=== PATIENT | male | born 1985 | race Caucasian/White ===

== ENCOUNTER → 2016-03-25 | Day surgery (SDC) | payer OTHER ==
[~2016-03-25] MED LIST: ACETAMINOPHEN325 MG PO; BISACODYL5 MG PO; CIPRO PO; COLESTID PO; ESCITALOPRAM OX10 MG PO; FLAGYL PO; FLAGYL250 M1 PO; HUMALOG KW100 UNIT/1 SUBQ; HUMALOG100 U/M1; HUMALOG100 U/M2; HUMALOG100 U/ML; HUMULIN 70/30 V10 ML SQ; HUMULIN 70100 UNIT/1 SQ; IRON325 MG PO; LANTUS SOL100 UNIT/1 SUBQ; LANTUS SOLOSTAR3 ML SUBQ; LANTUS100 U/ML SUBQ; LIPITOR PO; LISINOPRIL10 MG PO; LO-DOSE ASPIRIN81 M1 PO; LORTAB 5/500 TA1 TA1 PO; LORTAB 7.5-3251 EACH PO; NEURONTIN100 MG PO; PANTOPRAZOLE SO40 MG PO; PEN-VEE K PO; PERCOCET5/325 PO; PHENERGAN PO; PHENERGAN25 MG PO; VOLTAREN75 MG PO; ZYVOX600 MG PO
--- NOTE | ~2016-03-25 | OR ---
Unit #: [id number] #: [id number] Patient: KELLEN MEDRANO [id number] [address] [address] [id number] MR#: [id number] NAME: KELLEN MEDRANO. ROOM: Date of Procedure: 03/25/2016 Admission Date: 03/25/2016 Surgeon: Jaylen Nicole M.D. : 1985 Attending Physician: Jaylen Nicole M.D. OPERATIVE REPORT PROCEDURES PERFORMED Esophagogastroduodenoscopy with biopsy, colonoscopy with snare polypectomy, and colonoscopy with biopsies. INDICATIONS FOR PROCEDURE The patient with chronic diarrhea, history of peptic ulcer disease, chronic severe reflux symptoms, undergoing evaluation with upper endoscopy and colonoscopy. MEDICATIONS Monitored anesthesia. POSTOPERATIVE FINDINGS 1. 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 Biopsies taken. 2. Chronic gastritis, biopsies taken. 3. Normal duodenum and distal duodenum. Biopsies taken looking for celiac disease. 4. Colonoscopy completed to cecum and terminal ileum. Random biopsies were taken from otherwise normal looking mucosa. 5. Sigmoid colon shows a polyp about 5 mm that was snared and sent for histopathology. 6. Internal hemorrhoids. PLAN Symptomatic treatment for now along with starting PPIs. Reflux precautions explained. DESCRIPTION OF PROCEDURE The patient was explained of the procedure, risks, and benefits along with risks and benefits of anesthesia. He was brought to the endoscopy room. Propofol anesthesia was given. Bite block was placed. The scope was passed down the mouth into the esophagus, stomach, duodenum, and distal duodenum. Findings as described. Biopsies taken. Gently, I pulled it out of the patient's mouth. He tolerated it well. At this time, he was turned around and repositioned for colonoscopy. Rectal exam was done, which was normal. Colonoscope was lubricated, passed up the rectum, advanced under direct vision all the way to the cecum. Cecum was identified by ileocecal valve and appendiceal orifice. Terminal ileum was intubated shows normal mucosa. Colonic mucosa was normal throughout. Biopsies taken randomly. Polyp seen in sigmoid colon Unit #: [id number] #: [id number] Patient: KELLEN MEDRANO was removed using snare polypectomy and sent for histopathology. I retroflexed in the rectum, internal hemorrhoids noted. Gently, the scope was pulled out. He tolerated it well. Dictated by... Pinky Pope/akila TD: 03/26/2016 00:51 JOB #: [id number] CC: Ramin Rice Jr., AlPSulma OPERATIVE REPORT X Jaylen Nicole MD X PROCEDURE OPERATIVE NOTE
[2016-03-25 10:45] LABS: BASOPHIL# 0.1 X10e3 (0-0.3); BASOPHIL% 1.2 % (0-2.5); EOSINOPHIL# 0.4 X10e3 (0-0.7); EOSINOPHIL% 7.2 % (0.0-7.0); HEMATOCRIT 31.9 % (38.0-50.0); HEMOGLOBIN 10.4 gm/dL (13.0-16.0); LYMPHOCYTE# 1.7 X10e3 (1.0-3.5); LYMPHOCYTE% 28.2 % (17.0-45.0); MEAN CELL VOLUME 91.6 FL (83-96); MEAN CORPUSCULAR HEMOGLOBIN 29.8 PG (28-34); MEAN CORPUSCULAR HGB CONC 32.5 g/dL (30-36); MEAN PLATELET VOLUME 9.3 FL (6.5-11.5); MONOCYTE# 0.5 X10e3 (0-1.0); MONOCYTE% 7.8 % (3.0-12.0); NEUTROPHIL# 3.3 X10e3 (1.5-7.1); NEUTROPHIL% 55.6 % (40-75); PLATELET COUNT 217 X10e3 (140-420); RED BLOOD COUNT 3.49 X10e (3.90-5.60); RED CELL DISTRIBUTION WIDTH 13.6 % (11.0-15.5)
[2016-03-25 10:46] LABS: DIFF IND NO
[2016-03-25 12:16] LABS: ALBUMIN SERUM 3.4 g/dL (3.5-5.0); BILIRUBIN,TOTAL 0.5 mg/dL (0.2-2.0); CALCIUM SERUM 8.8 mg/dL (8.4-10.2); CREATININE SERUM 1.5 mg/dL (0.6-1.4); GLOM FILT RATE Estimated 59.2 mL/min (>60); POTASSIUM 4.3 mmol/L (3.5-5.1); PROTEIN TOTAL SERUM 5.8 g/dL (6.0-8.3)
[2016-03-30 13:42] LABS: GLIADIN IGA AB 7 Units (<20); GLIADIN IGG AB 6 Units (<20); RETICULIN IGA SCREEN W/REFLEX Negative (Negative); TISSUE TRANSGLUTAMINASE IGA AB 1 U/mL (<4)
== END | disposition home or self-care (01) ==
LOC: COPS 07:44
PROVIDERS: Internal Medicine
DX: K63.5 Polyp of colon (principal); K52.9 Noninfective gastroenteritis and colitis, unspecified; K29.80 Duodenitis without bleeding; K29.50 Unspecified chronic gastritis without bleeding; K20.9 Esophagitis, unspecified; K44.9 Diaphragmatic hernia without obstruction or gangrene; K64.8 Other hemorrhoids; K21.9 Gastro-esophageal reflux disease without esophagitis; I11.0 Hypertensive heart disease with heart failure; I50.9 Heart failure, unspecified; E11.9 Type 2 diabetes mellitus without complications; F17.210 Nicotine dependence, cigarettes, uncomplicated; Z79.899 Other long term (current) drug therapy
CPT/HCPCS: 80053; 82947; 83516; 85025; 86140; 86255; 88305; 88312; J2250

== ENCOUNTER 2016-07-08 22:30 | Inpatient (IN) | payer OTHER ==
--- NOTE | ~2016-07-08 | HP ---
Unit #: [id number] #: [id number] Patient: KELLEN MEDRANO [id number] [facility] [address] [facility]. [place], [place] [address] [id number] I MR#: [id number] NAME: KELLEN MEDRANO ROOM: 231 Age: 30 Sex: M Admission Date: 07/08/2016 : 1985 Attending Physician: Willard Leon M.D. Primary Care Physician: No Primary Care Physician HISTORY AND PHYSICAL CHIEF COMPLAINT Weakness. HISTORY OF PRESENT ILLNESS The patient is a 30-year-old male with type 1 diabetes who presents to [facility] secondary to some weakness. He states that he has had a sore on his foot for the past one month. It started out as a simple blister but has progressed to what is an open wound that is red and warm. He denies significant pain. No fevers, nausea or vomiting. As mentioned above, he states that he is feeling subjectively weak, increasingly over the past few days. PAST MEDICAL HISTORY Diabetes, inflammatory bowel disease and hypertension. PAST SURGICAL HISTORY None. SOCIAL HISTORY The patient smokes, denies alcohol or illicit drug use. FAMILY HISTORY Asthma. ALLERGIES No known drug allergies. HOME MEDICATIONS Aspirin 81 mg daily; Lipitor 10 mg daily; Colestid 1 g daily; Lexapro 10 mg daily; iron 325 mg p.o. daily; Neurontin 100 mg p.o. at bedtime; lisinopril 10 mg daily; Protonix 40 mg daily; Lantus 10 units subcu at bedtime; Humalog 5 units before meals. REVIEW OF SYSTEMS Ten point review of systems obtained and negative except per HPI. PHYSICAL EXAMINATION VITAL SIGNS: Temperature 98.6, pulse 98, blood pressure 129/78. GENERAL: 30-year-old male in no acute distress who appears her stated age. HEENT: Pupils equally round. Extraocular movements intact. Mucous membranes dry. NECK: Supple. No JVD. No lymphadenopathy. CARDIAC: Regular rate and rhythm. No murmurs, gallops or rubs. Unit #: [id number] #: [id number] Patient: KELLEN MEDRANO LUNGS: Clear to auscultation bilaterally. ABDOMEN: Nontender and nondistended. Positive bowel sounds. EXTREMITIES: No clubbing, cyanosis or edema. Warm and dry. PSYCH: Alert and oriented x3. NEUROLOGIC: Cranial nerves II-XII intact grossly. Patient moves all extremities equal and with purpose. SKIN: He has open, necrotic looking wound in his left great toe. There is erythema and swelling associated. MUSCULOSKELETAL: Swelling of his left great toe, otherwise no muscle joint pain. No muscle joint swelling. DIAGNOSTIC STUDIES LABORATORY STUDIES: Patient's creatinine is 1.7. Glucose 318. Potassium 3.3, bicarb 19. White cell count is 14.3, hemoglobin 9.6. IMAGING STUDIES: X-ray of the foot shows soft tissue swelling but no osteomyelitis. ASSESSMENT AND PLAN 1. Diabetic foot infection. Patient has been started on Zosyn and vancomycin in the emergency department and will continue these. X-ray shows no osteo; however, the patient will likely require MRI with contrast one his renal function improves. 2. I have ordered a CRP also to help with the diagnosis of osteomyelitis. 3. Diabetes. The patient is started on his home medications. 4. Acute kidney injury likely volume depletion from uncontrolled diabetes. Given the patient a 500 mL bolus and will continue with further fluid resuscitation. 5. Prophylaxis. Patient will be started on Lovenox. Dictated by Willard Leon M.D. RAIZA/tito TD: 07/09/2016 13:18 JOB #: [id number] HISTORY AND PHYSICAL Page 1 of 1 X Willard Leon MD HISTORY AND PHYSICAL
--- NOTE | ~2016-07-08 | CO ---
Unit #: [id number] #: [id number] Patient: KELLEN MEDRANO [id number] [address] [place], [place] [address] [id number] I MR#: [id number] NAME: KELLEN MEDRANO ROOM: 231 Age: 30 Sex: M Admission Date: 07/08/2016 : 1985 Attending Physician: Pilar Collins M.D. CONSULTATION REPORT REASON FOR CONSULTATION Management of type 1 diabetes mellitus. HISTORY OF PRESENT ILLNESS This is a 30-year-old male with history of type 1 diabetes mellitus since the age of 14 years, complicated with the peripheral neuropathy, who presented to the [facility] Emergency Room with increasing weakness, pain, swelling, and redness on the left big toe. The wound has started as a blister about a month ago, which has been getting worse over the next 3 to 4 weeks. No fever or chills. He was started on IV vancomycin. His blood glucose on admission was over 300, creatinine of 1.7. I have been asked to see the patient for management of his diabetes mellitus. Note, the patient does report to have a history of some hypoglycemia. PAST MEDICAL HISTORY Type 1 diabetes mellitus, inflammatory bowel disease, and hypertension. PAST SURGICAL HISTORY None. SOCIAL HISTORY Continues to smoke tobacco. No alcohol or illicit drugs. FAMILY HISTORY Noncontributory. ALLERGIES None known. HOME MEDICATIONS Lantus 20 units b.i.d., Humalog 5 to 10 units with meals, sliding scale, Lexapro 10 mg daily, Neurontin 100 mg at bedtime, and lisinopril 10 mg daily. REVIEW OF SYSTEMS 12-point review of systems is completed. Remarkable for numbness, loss of sensation in the feet, redness, erythema, and pain in the left big toe. Positive hypoglycemia. Declines any history of diabetic retinopathy . The patient had no nausea, vomiting, or abdominal pain. No fever or chills. No urgency, frequency, or dysuria. No focal deficits. No seizures. Rest of the review of systems is unremarkable. PHYSICAL EXAMINATION Unit #: [id number] #: [id number] Patient: KELLEN MEDRANO GENERAL: He is awake, alert, and oriented to time, place, and person. VITAL SIGNS: Stable. Temperature 98.4, pulse 104, respirations 18, and blood pressure is 117/70. HEENT: EOMI. Pupils are equally reactive to light. NECK: Supple. No thyromegaly noted. CHEST: Good air entry. CVS: Regular rhythm. No murmurs. ABDOMEN: Soft and nontender. Bowel sounds positive. EXTREMITIES: Left big toe cellulitis, erythema, and tenderness noted. DIAGNOSTIC STUDIES LABORATORY RESULTS: Reviewed. Creatinine is 1.5 today, glucose 235, CO2 is 20. A1c is 10. No ketones. ASSESSMENT 1. Type 1 diabetes mellitus, poorly controlled. 2. Chronic kidney disease. 3. Left big toe cellulitis. 4. Questionable osteomyelitis. PLAN Discussed with the patient at length about compliance. Change Levemir 8 units subcu b.i.d. Change NovoLog 5 units subcu each meal. Change sliding scale to low dose. Limit carbs to 60 g per meal. Accu-Cheks a.c. and h.s. We will continue to follow for further management. Dictated by... Pinky Duarte/akila TD: 07/13/2016 14:04 JOB #: [id number] CONSULTATION REPORT Page 1 of 1 X Elsie Reyes MD CONSULTATION REPORT
--- NOTE | ~2016-07-08 | CO ---
Unit #: [id number] #: [id number] Patient: KELLEN MEDRANO [id number] [address] [place], [place] [address] [id number] I MR#: [id number] NAME: KELLEN MEDRANO ROOM: 231 Age: 30 Sex: M Admission Date: 07/08/2016 : 1985 Attending Physician: Pilar Collins M.D. Consultation Date: 07/13/2016 CONSULTATION REPORT CHIEF COMPLAINT Ulcer of left great toe and possible septic arthritis of the IP joint. HISTORY OF PRESENT ILLNESS Kellen is a 30-year-old male with type 1 diabetes, who presented to [facility] complaining of weakness. Upon examination of his left foot, it was discovered that he had an ulceration on the plantar aspect of the great toe. He states that he noticed this in early May when it appeared to be blister, but he reports it had been progressed into an open wound. He denies any pain in the left great toe. He denies any fevers over the past 2 months. An MRI was obtained of the left foot, which showed a 2.3 x 1.4 cm ulcer on the plantar aspect of the left great toe. It was also noted that there was possible septic arthritis of the IP joint of the great toe. No osteomyelitis was seen on MRI. Orthopedic Service was then consulted for further workup and possible surgical intervention. PAST MEDICAL HISTORY Type 1 diabetes, inflammatory bowel disease, and hypertension. PAST SURGICAL HISTORY None. SOCIAL HISTORY The patient smokes. He denies any alcohol or illicit drug use. FAMILY HISTORY Asthma. ALLERGIES No known drug allergies. HOME MEDICATIONS 1. Aspirin 81 mg daily. 2. Lipitor 10 mg daily. 3. Colestid 1 g daily. 4. Lexapro 10 mg daily. 5. Iron 325 mg daily. 6. Neurontin 100 mg p.o. at bedtime. 7. Lisinopril 10 mg p.o. daily. 8. Protonix 40 mg p.o. daily. 9. Lantus 10 units subcutaneously at bedtime. 10. Humalog 5 units before meals. Unit #: [id number] #: [id number] Patient: KELLEN MEDRANO REVIEW OF SYSTEMS A 10-point review of systems was obtained and negative except for as described in the HPI. PHYSICAL EXAMINATION VITAL SIGNS: Temperature is 98.3, heart rate 96, respirations 14, and blood pressure 136/84. GENERAL: This is a 30-year-old male, resting in his hospital bed, who appears to be in no acute distress. HEENT: Pupils are equal, round, and reactive to light. Extraocular movements are intact. He is normocephalic. NECK: Supple without lymphadenopathy. CARDIAC: Regular rate and rhythm. LUNGS: Symmetric chest rise. No increased work of breathing. ABDOMEN: Soft. PSYCHIATRIC: The patient is awake, alert, and oriented x3. NEUROLOGIC: Cranial nerves II through XII are grossly intact. EXTREMITIES: Warm and dry. SKIN: There is a 2 x 1.5 cm ulcer on the plantar aspect of the left great toe. There is diffuse erythema and swelling of the left great toe. MUSCULOSKELETAL: His left great toe was examined. He has decreased sensation on light touch, which is baseline for him. He has normal range of motion of the MTP joint of the great toe. He had decreased range of motion of the IP joint of the great toe. He did not report any pain with range of motion. He has 2+ dorsalis pedis and posterior tibial pulses. DIAGNOSTIC STUDIES LABORATORY RESULTS: The patient's white blood cell count is 12.2. His ESR from 07/09 at 86 and his CRP from 07/09 is 9.5. IMAGING STUDIES: X-ray review of the left foot, which shows soft tissue swelling, but no osteomyelitis. MRI review of the left foot, which shows a 2.3 x 1.4 cm ulcer on the plantar aspect of the left great toe. There is possible septic arthritis of the IP joint of the great toe noted on MRI. No osteomyelitis was noted on MRI. ASSESSMENT Left great toe ulceration with possible septic arthritis of the interphalangeal joint. PLAN The patient's MRI showed possible septic arthritis of the IP joint of the great toe as well as ulceration on the plantar aspect of the great toe. The case was discussed with Dr. Delgado, and we recommend an I and D of the left great toe with arthrotomy of the interphalangeal joint. The risks, benefits, and alternatives were discussed with the patient. He elected to proceed with surgery later today. The patient is currently on IV antibiotics as prescribed by H. Dictated by... Suad Fritz APRN for Pinky Coffman/akila TD: 07/14/2016 15:06 JOB #: [id number] Unit #: [id number] #: [id number] Patient: KELLEN MEDRANO CONSULTATION REPORT Page 1 of 1 X SUAD FRITZ APRN X CONSULTATION REPORT
--- NOTE | ~2016-07-08 | OR ---
Unit #: [id number] #: [id number] Patient: KELLEN CAR [id number] [address] [place], [place] [address] [id number] I MR#: [id number] NAME: KELLEN CAR ROOM: [facility] Date of Procedure: 07/13/2016 Admission Date: 07/08/2016 Surgeon: Juan Pablo Delgado M.D. : 1985 Attending Physician: Pilar Collins M.D. OPERATIVE REPORT PREOPERATIVE DIAGNOSES 1. Left hallux interphalangeal joint septic arthritis. 2. Left hallux plantar ulceration. POSTOPERATIVE DIAGNOSES 1. Left hallux interphalangeal joint septic arthritis. 2. Left hallux plantar ulceration. PROCEDURES PERFORMED 1. Left hallux interphalangeal joint arthrotomy with evacuation. 2. Left flexor hallucis longus tendon sheath incision and irrigation. 3. Debridement of left hallux ulceration to fascia. ANESTHESIA MAC with digital block. INDICATIONS FOR PROCEDURE Mr. Car is a 30-year-old gentleman with poorly controlled type 1 diabetes mellitus with a hemoglobin A1c of reportedly greater than 12. He developed a blister on the plantar aspect of his great toe in 05/2016. He had delayed presentation until 07/2016 to the emergency department. He has now been admitted with progressive swelling and erythema of the great toe. This failed IV antibiotic therapy. An MRI was obtained, which demonstrated no evidence of osteomyelitis, but potential septic arthritis of the IP joint and full-thickness ulceration on the plantar aspect of the digit. There was an area of necrosis here and debridement was indicated. DESCRIPTION OF PROCEDURE The patient was identified in the preoperative holding area. The operative site was marked. The patient was brought to the operating room and placed supine on the operating table. The patient has advanced peripheral neuropathy, which is generally insensate to operative site. The patient had uncontrolled hypertension, therefore a MAC anesthesia was felt to be able to be regionally provided and safest. This was combined with a digital block. The left leg was identified and prepped and draped in sterile fashion. The left hallux was anesthetized with a digital block utilizing lidocaine. An ankle tourniquet was applied with an Esmarch bandage. An incision was made over the medial aspect of the hallux. Dissection was carried down to the IP joint. This was opened and arthrotomy to the IP Unit #: [id number] #: [id number] Patient: KELLEN CAR joint was performed and a small amount of cloudy fluid was evacuated. There was some infectious material tracking along the flexor tendon as well, which was debrided. The FHL sheath was opened and this fluid evacuated. Attention was then turned to the plantar ulceration. Debridement was performed down to level of essentially fascia or tendon at this location removing all necrotic and nonviable tissue with sharp excisional debridement with a 15-blade knife and a rongeur. The wound was then irrigated. A saline soaked gauze was placed in the plantar ulceration. The medial incision was reapproximated with two 3-0 nylon sutures and left open centrally to drain. The wound was dressed with a well-padded sterile soft dressing. The patient was then aroused from sedation and transported to recovery room. DISPOSITION Stable to recovery room. Dictated by... Pinky Coffman/akila TD: 07/14/2016 16:56 JOB #: [id number] OPERATIVE REPORT Page 1 of 1 X Juan Pablo Delgado MD X PROCEDURE OPERATIVE NOTE
--- NOTE | ~2016-07-08 | DS ---
Unit #: [id number] #: [id number] Patient: KELLEN CAR [id number] [address] [address] [id number] MR#: [id number] NAME: KELLEN CAR ROOM: 231 Age: 30 Sex: M Admission Date: 07/08/2016 : 1985 Discharge Date: 07/14/2016 Attending Physician: Pilar Collins M.D. Primary Care Physician: No Primary Care Physician DISCHARGE SUMMARY PRINCIPAL DIAGNOSES 1. Sepsis secondary to left diabetic foot wound with Staphylococcus aureus; sensitivity of Staphylococcus aureus is pending. 2. Septic arthritis of left first toe interphalangeal joint status post incision and drainage. 3. Diabetes mellitus type 1, uncontrolled, with hemoglobin A1C of 10.1. 4. Chronic kidney disease, stage 3, with discharge creatinine of 1.4. 5. Diabetic peripheral neuropathy. 6. Mild hypotension, likely secondary to infection. 7. History of hypertension. 8. 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 9. Normocytic anemia. 10. Hyperlipidemia. 11. Gastroesophageal reflux disease. 12. Depression. 13. Tobaccoism. CONSULTANTS 1. Dr. Delgado, orthopedic surgery. 2. Dr. Reyes, endocrinology. PROCEDURES I and D of left plantar first toe ulcer and I and D of interphalangeal joint. DIAGNOSTIC STUDIES IMAGING: MRI of the left foot with and without contrast on July 10, 2016 with a 2.3 cm x 1.4 cm ulceration on the plantar medial aspect of the great toe at the level of the interphalangeal joint. There is underlying medial 14 mm x 14 mm zone of nonenhancing signal fluid consistent with developing abscess. There is small interphalangeal joint effusion concerning for early septic arthritis. No evidence of osteomyelitis. CLINICAL HISTORY AND HOSPITAL COURSE Mr. Car is a 30-year-old male with a history of uncontrolled diabetes who presented to the emergency department with complaints of weakness. The patient has had a sore on his left great toe for the past one month but had progressed to an open wound but had not had any drainage. In the emergency department the patient was found to have significant wound of the toe. He was also found to have an elevated creatinine of 1.7 and elevated white blood cell count of 14.3. The patient was subsequently admitted. Unit #: [id number] #: [id number] Patient: KELLEN CAR The patient was placed on empiric vancomycin and Zosyn. MRI of the foot was obtained, revealing a significant wound to the foot and interphalangeal septic arthritis. For this reason, Dr. Delgado was consulted. Patient underwent I and D of the wound of the interphalangeal joint on July 13. Postoperatively, he has done well. Cultures of the foot are revealing rare gram-positive cocci in clusters. Clinically the wound appears most consistent with staph. Review of old cultures in this particular patient in the urine reveals MSSA in the past but with significant resistance to a lot of oral agents. Given this history of resistant infection in combination with chronic kidney disease, he has been changed to oral Zyvox. His white blood cell count here has almost normalized upon discharge, and he remained afebrile throughout hospitalization. In regard to the patient's elevated creatinine, he is found to have proteinuria on urinalysis, and creatinine on day of discharge is now down to 1.4. Review of records indicates creatinine has been elevated steadily since 2014. I suspect he has underlying diabetic nephropathy and can follow up with nephrology as an outpatient. Patient's other chronic conditions remained stable. His sugars were quite variable for the initial portion of the hospitalization with hyper- and hypoglycemia, but Dr. Reyes evaluated the patient, and he will be discharged home on insulin, as noted. DISCHARGE CONDITION Stable. DISCHARGE STATUS Discharge to home with home health for dressing changes. DISCHARGE MEDICATIONS 1. Zyvox 600 mg p.o. b.i.d. for 14 days. 2. Neurontin 100 mg at bedtime. 3. Lexapro 10 mg daily. 4. Colestid 1 gram p.o. daily. 5. Lipitor 10 mg at bedtime. 6. Lisinopril 10 mg 1/2 a tablet p.o. daily. 7. Lantus 20 units subcutaneously b.i.d. 8. NovoLog 5 units subcu t.i.d. with meals. 9. Ferrous sulfate 325 mg daily. 10. Aspirin 81 mg daily. 11. Lortab 7.5/325 mg 1 tablet p.o. q.6 hours p.r.n. pain (# given 20). 12. Pantoprazole 40 mg daily. DISCHARGE INSTRUCTIONS Patient is to have dressing changed twice daily to his left foot. He is heel weightbearing on the left lower extremity. Dressings are currently normal saline wet-to-dry. He should continue to follow a constant carb diet and continue Accu-Cheks a.c. and h.s. at home. Refrain from any further tobacco use. FOLLOW-UP 1. Patient will follow up with Dr. Delgado in approximately 7-10 days. 2. Patient can follow up with Dr. Reyes as previous scheduled. NOTE: Time spent on discharge - 33 minutes. Unit #: [id number] #: [id number] Patient: CARKELLEN Dictated by... Pilar Collins M.D. JOÃO/glen TD: 07/15/2016 08:48 JOB #: [id number] DISCHARGE SUMMARY Page 1 of 1 X Pilar Collins MD X DISCHARGE SUMMARY
--- NOTE | ~2016-07-08 | MR58 ---
[facility] A Service of [facility] & [facility] RADIOLOGY TEXT RESULTS PATIENT: KELLEN MEDRANO LOCATION: C2A 231- : [birth year] UNIT #: [id number] AGE: [address]: Pilar Collins MD SEX: M ORDER DR: [id number] [facility] [address] [place], [place] [address] [id number] MR#: [id number] Acc #: [id number] NAME: KELLEN MEDRANO : 1985 SEX: M STUDY DATE/TIME: 07/10/2016 UNIT: C2A ROOM: 231 STUDY DESCRIPTION: MR Foot WWo Contrast Lt Attending Physician: Pilar Collins M.D. Ordering Physician: Pilar Collins M.D. Primary Care Physician: Primary Care Physician No MRI CENTER REPORT This report is preliminary unless electronic signature is present. EXAM MRI left forefoot without and with intravenous contrast, 07/10/2016. HISTORY Order states left foot wound, ? Osteomyelitis. A progress note states sepsis secondary to left great toe diabetic wound with cellulitis. History sheet states patient complains of left foot pain for 45 days. Started with a blister at the great toe, first digit. Left great toe pain, redness, swelling, ulcer. Gel-Cap in the area of patient indicated pain and redness. Surgical history unknown. Trauma history not provided. COMPARISON Left foot radiographs 07/08/2016. FINDINGS There is a plantar medial open wound/ulceration of the great toe measuring 2.3 cm transverse by at least 1.4 cm AP. Extending deep from the wound along the medial side, there is a zone of nonenhancing, nonperfused/underperfused tissue and/or complex signal fluid. This extends nearly to the medial nail bed and is in proximity to the plantar medial interphalangeal joint capsule. There is a small interphalangeal joint effusion. Findings raise the possibility of early septic arthritis. There is no definitive MR evidence of osteomyelitis. There is enhancing great toe cellulitis. The MTP joints are normal. There is mild muscle atrophy in the forefoot most commonly secondary to peripheral neuropathy in diabetics. IMPRESSION 1. Approximate 2.3 x 1.4 cm wound/ulceration of the plantar medial STS. [facility] A Service of [facility] RADIOLOGY TEXT RESULTS PATIENT: KELLEN MEDRANO LOCATION: C2A 231-01 : [birth year] UNIT #: [id number] AGE: [address]: Pilar Collins MD SEX: M ORDER DR: aspect of the great toe at the level of the interphalangeal joint. There is an underlying medial side 14 x 14 mm zone of nonenhancing complex signal fluid and/or underperfused or nonperfused soft tissue concerning for developing abscess and/or tissue necrosis. This extends to the medial plantar aspect of the interphalangeal joint capsule and the nail bed. There is a small interphalangeal joint effusion, which could reflect early septic arthritis. 2. There is no evidence of osteomyelitis. Dictated by... Ruth Zuniga M.D. THIS IS AN ELECTRONICALLY VERIFIED REPORT Ruth Zuniga M.D. at 07/12/2016 10:49 AM TMJanessa/carmelo TD: 07/11/2016 17:34 JOB #: [id number] MRI CENTER REPORT Page 1 of 1 COPY
[~2016-07-08 22:30] MED LIST changes: -COLESTID PO; -ESCITALOPRAM OX10 MG PO; -HUMALOG KW100 UNIT/1 SUBQ; -IRON325 MG PO; -LANTUS SOL100 UNIT/1 SUBQ; -LIPITOR PO; -LO-DOSE ASPIRIN81 M1 PO; -LORTAB 7.5-3251 EACH PO; -NEURONTIN100 MG PO; -PANTOPRAZOLE SO40 MG PO; -ZYVOX600 MG PO
[2016-07-09] MEDS ORDERED: LO-DOSE ASPIRIN81 M1 PO (01:34)
[2016-07-09] MEDS ORDERED: LIPITOR PO (01:35)
[2016-07-09] MEDS ORDERED: ESCITALOPRAM OX10 MG PO (01:36)
[2016-07-09] MEDS ORDERED: COLESTID PO (01:36)
[2016-07-09] MEDS ORDERED: IRON325 MG PO (01:39)
[2016-07-09] MEDS ORDERED: NEURONTIN100 MG PO (01:40)
[2016-07-09] MEDS ORDERED: LISINOPRIL10 MG PO (01:41)
[2016-07-09] MEDS ORDERED: PANTOPRAZOLE SO40 MG PO (01:42)
[2016-07-09] MEDS ORDERED: LANTUS SOL100 UNIT/1 SUBQ (02:00)
[2016-07-09] MEDS ORDERED: HUMALOG KW100 UNIT/1 SUBQ (02:03)
[2016-07-09 06:07] LABS: BASOPHIL# 0.1 X10e3 (0-0.3); BASOPHIL% 0.7 % (0-2.5); EOSINOPHIL# 0.9 X10e3 (0-0.7); EOSINOPHIL% 6.5 % (0.0-7.0); HEMATOCRIT 30.2 % (38.0-50.0); HEMOGLOBIN 9.6 gm/dL (13.0-16.0); LYMPHOCYTE# 1.7 X10e3 (1.0-3.5); LYMPHOCYTE% 11.9 % (17.0-45.0); MEAN CORPUSCULAR HEMOGLOBIN 29.3 PG (28-34); MEAN CORPUSCULAR HGB CONC 31.8 g/dL (30-36); MEAN PLATELET VOLUME 9.4 FL (6.5-11.5); MONOCYTE% 7.3 % (3.0-12.0); NEUTROPHIL# 10.5 X10e3 (1.5-7.1); NEUTROPHIL% 73.6 % (40-75); PLATELET COUNT 285 X10e3 (140-420); RED BLOOD COUNT 3.28 X10e (3.90-5.60); RED CELL DISTRIBUTION WIDTH 13.4 % (11.0-15.5); WHITE BLOOD COUNT 14.3 X10e3 (4.0-10.5)
[2016-07-09 06:11] LABS: DIFF IND NO
[2016-07-09 07:13] LABS: BUN/CREATININE RATIO 12.94; CALCIUM SERUM 8.1 mg/dL (8.4-10.2); CREATININE SERUM 1.7 mg/dL (0.6-1.4); GLOM FILT RATE Estimated 53.7 mL/min (>60); POTASSIUM 3.3 mmol/L (3.5-5.1)
[2016-07-10 06:19] LABS: BUN/CREATININE RATIO 7.5; CALCIUM SERUM 7.9 mg/dL (8.4-10.2); CREATININE SERUM 1.6 mg/dL (0.6-1.4); GLOM FILT RATE Estimated 57.8 mL/min (>60); POTASSIUM 3.8 mmol/L (3.5-5.1)
[2016-07-10 06:24] LABS: HEMATOCRIT 27.1 % (38.0-50.0); HEMOGLOBIN 8.7 gm/dL (13.0-16.0); MEAN CELL VOLUME 91.1 FL (83-96); MEAN CORPUSCULAR HEMOGLOBIN 29.2 PG (28-34); MEAN CORPUSCULAR HGB CONC 32.1 g/dL (30-36); MEAN PLATELET VOLUME 9.3 FL (6.5-11.5); RED BLOOD COUNT 2.98 X10e (3.90-5.60); RED CELL DISTRIBUTION WIDTH 13.5 % (11.0-15.5); WHITE BLOOD COUNT 15.4 X10e3 (4.0-10.5)
[2016-07-10 18:18] LABS: URINE APPEARANCE CLEAR; URINE BILIRUBIN NEG (NEG); URINE BLOOD TRACE (NEG); URINE COLOR YELLOW; URINE GLUCOSE >1000 MG/DL (NEG); URINE KETONE NEG (NEG); URINE LEUKOCYTE ESTERASE NEG (NEG); URINE NITRATE NEG (NEG); URINE PROTEIN 2+ (NEG); URINE SPECIFIC GRAVITY 1.017 (1.003-1.035); URINE UROBILINOGEN 0.2 MG/DL (NEG)
[2016-07-10 18:21] LABS: CULTURE INDICATED? NO; URBCS1 AUWI 0-2 /[HPF] (0-2); URINE BACTERIA AUWI NEG (NEGATIVE); URINE SQUAMOUS EPITHELIAL CELL NONE SEEN /[HPF]; UWBCS1 AUWI 0-2 (0-5)
[2016-07-11 06:02] LABS: HEMATOCRIT 28.7 % (38.0-50.0); HEMOGLOBIN 9.2 gm/dL (13.0-16.0); MEAN CELL VOLUME 91.8 FL (83-96); MEAN CORPUSCULAR HEMOGLOBIN 29.3 PG (28-34); MEAN CORPUSCULAR HGB CONC 31.9 g/dL (30-36); MEAN PLATELET VOLUME 9.3 FL (6.5-11.5); RED BLOOD COUNT 3.12 X10e (3.90-5.60); RED CELL DISTRIBUTION WIDTH 13.7 % (11.0-15.5); WHITE BLOOD COUNT 14.6 X10e3 (4.0-10.5)
[2016-07-11 06:32] LABS: BUN/CREATININE RATIO 5.55; CALCIUM SERUM 8.1 mg/dL (8.4-10.2); CREATININE SERUM 1.8 mg/dL (0.6-1.4); GLOM FILT RATE Estimated 50.1 mL/min (>60); POTASSIUM 4.3 mmol/L (3.5-5.1)
[2016-07-12 05:27] LABS: HEMATOCRIT 30.3 % (38.0-50.0); HEMOGLOBIN 9.7 gm/dL (13.0-16.0); MEAN CELL VOLUME 90.9 FL (83-96); MEAN CORPUSCULAR HGB CONC 31.9 g/dL (30-36); MEAN PLATELET VOLUME 9.3 FL (6.5-11.5); RED BLOOD COUNT 3.33 X10e (3.90-5.60); RED CELL DISTRIBUTION WIDTH 13.6 % (11.0-15.5); WHITE BLOOD COUNT 11.2 X10e3 (4.0-10.5)
[2016-07-12 06:07] LABS: THYROID STIMULATING HORMONE 1.17 uIU/ml (0.34-5.60)
[2016-07-12 06:15] LABS: BUN/CREATININE RATIO 5.33; CREATININE SERUM 1.5 mg/dL (0.6-1.4); GLOM FILT RATE Estimated 62.5 mL/min (>60); POTASSIUM 3.5 mmol/L (3.5-5.1)
[2016-07-13 06:18] LABS: HEMATOCRIT 31.7 % (38.0-50.0); HEMOGLOBIN 10.2 gm/dL (13.0-16.0); MEAN CELL VOLUME 90.7 FL (83-96); MEAN CORPUSCULAR HEMOGLOBIN 29.1 PG (28-34); MEAN CORPUSCULAR HGB CONC 32.1 g/dL (30-36); MEAN PLATELET VOLUME 9.3 FL (6.5-11.5); RED BLOOD COUNT 3.49 X10e (3.90-5.60); RED CELL DISTRIBUTION WIDTH 13.4 % (11.0-15.5); WHITE BLOOD COUNT 12.2 X10e3 (4.0-10.5)
[2016-07-14 04:44] LABS: HEMATOCRIT 30.1 % (38.0-50.0); HEMOGLOBIN 9.5 gm/dL (13.0-16.0); MEAN CELL VOLUME 91.3 FL (83-96); MEAN CORPUSCULAR HGB CONC 31.7 g/dL (30-36); MEAN PLATELET VOLUME 9.3 FL (6.5-11.5); RED BLOOD COUNT 3.29 X10e (3.90-5.60); RED CELL DISTRIBUTION WIDTH 13.2 % (11.0-15.5); WHITE BLOOD COUNT 11.3 X10e3 (4.0-10.5)
[2016-07-14 05:37] LABS: BUN/CREATININE RATIO 6.42; CALCIUM SERUM 8.1 mg/dL (8.4-10.2); CREATININE SERUM 1.4 mg/dL (0.6-1.4); GLOM FILT RATE Estimated 67.9 mL/min (>60); POTASSIUM 4.2 mmol/L (3.5-5.1)
[2016-07-14] MEDS ORDERED: LORTAB 7.5-3251 EACH PO (16:30)
[2016-07-14] MEDS ORDERED: ZYVOX600 MG PO (16:31)
== END 2016-07-14 17:17 | disposition home health service (06) | DRG 854 ==
LOC: C2A 22:30
PROVIDERS: Internal Medicine; Orthopaedic Surgery
PROC: 0L9W0ZZ Drainage of Left Foot Tendon, Open Approach (ICD-10-PCS; 2016-07-13)
PROC: 0JBR0ZZ Excision of Left Foot Subcutaneous Tissue and Fascia, Open Approach (ICD-10-PCS; 2016-07-13)
PROC: 0SC Lower Joints, Extirpation (ICD-10-PCS; principal; 2016-07-13 15:00)
DX: A41.01 Sepsis due to Methicillin susceptible Staphylococcus aureus (principal); M00.872 Arthritis due to other bacteria, left ankle and foot; E10.22 Type 1 diabetes mellitus with diabetic chronic kidney disease; E10.42 Type 1 diabetes mellitus with diabetic polyneuropathy; E10.621 Type 1 diabetes mellitus with foot ulcer; Z79.4 Long term (current) use of insulin; K52.3 Indeterminate colitis; I10 Essential (primary) hypertension; F17.210 Nicotine dependence, cigarettes, uncomplicated; I12.9 Hypertensive chronic kidney disease with stage 1 through stage 4 chronic kidney disease, or unspecified chronic kidney disease; E10.65 Type 1 diabetes mellitus with hyperglycemia; L03.032 Cellulitis of left toe; L97.529 Non-pressure chronic ulcer of other part of left foot with unspecified severity; Z79.82 Long term (current) use of aspirin; N18.3 Chronic kidney disease, stage 3 (moderate); N25.89 Other disorders resulting from impaired renal tubular function; F32.9 Major depressive disorder, single episode, unspecified
CPT/HCPCS: 73720; 80048; 80202; 81003; 82533; 82947; 83036; 84300; 84443; 85025; 85027; 85652; 86140; 87070; 87075; 87077; 87186; 87205; A9577; J1650; J1815; J2250; J2270; J2543; J3010; J3370

== ENCOUNTER → 2016-07-30 | Outpatient (CLI) | payer OTHER ==
[~2016-07-30] MED LIST changes: +COLESTID PO; +ESCITALOPRAM OX10 MG PO; +HUMALOG KW100 UNIT/1 SUBQ; +IRON325 MG PO; +LANTUS SOL100 UNIT/1 SUBQ; +LIPITOR PO; +LO-DOSE ASPIRIN81 M1 PO; +LORTAB 7.5-3251 EACH PO; +NEURONTIN100 MG PO; +PANTOPRAZOLE SO40 MG PO; +ZYVOX600 MG PO
--- NOTE | ~2016-07-30 | US136 ---
[facility] A Service of [facility] & [facility] RADIOLOGY TEXT RESULTS PATIENT: KELLEN MEDRANO LOCATION: CNIV : 89 UNIT #: [id number] AGE: [address]: SUAD FRITZ APRN SEX: M ORDER DR: [id number] [facility] [address] [place], [place] [address] [id number] O MR#: [id number] Acc #: [id number] NAME: KELLEN MEDRANO : 1985 SEX: M STUDY DATE/TIME: 07/30/2016 10:15 UNIT: CNIV ROOM: STUDY DESCRIPTION: US U/L Ext Art Study Ltd Bilat Attending Physician: Suad Fritz Aprn Referring Physician: Suad Fritz Aprn Ordering Physician: Suad Fritz Aprn Primary Care Physician: Ramin Rice Jr., A.P.R.N. MEDICAL IMAGING REPORT This report is preliminary unless electronic signature is present EXAM Bilateral lower extremity ankle-brachial indices HISTORY Chronic nonhealing left great toe ulcer. Symptoms for 2 years. Bilateral lower extremity claudication. FINDINGS Peak brachial pressures are 205 on the right and 203 on the left. At the right ankle, peak pressures are 219 dorsalis pedis and noncompressible at the posterior tibial and noncompressible at the great toe. The ankle-brachial index at the dorsalis pedis artery is 1.07. At the left ankle, peak pressure is 232 at the dorsalis pedis and noncompressible at the posterior tibial. The left great toe pressure was not obtained due to left great toe open wound. The left ankle-brachial index is calculated at 1.13. Comparison to the left foot x-ray 07/08/2016 demonstrates arterial calcifications in the ankle and foot. IMPRESSION 1. The calculated ankle-brachial indices are normal bilaterally measuring 1.07 on the right 1.13 on the left. These could be artifactually elevated secondary to arterial calcification as noted on the left foot x-ray 07/08/2016. 2. The exam is also partly limited by noncompressible vessels at the posterior tibial arteries bilaterally, also likely secondary to the arterial calcification. 3. Elevated brachial pressures bilaterally measuring 205 on the right and 203 on the left. [facility] A Service of [facility] & [facility] RADIOLOGY TEXT RESULTS PATIENT: KELLEN MEDRANO LOCATION: CNIV : 89 UNIT #: [id number] AGE: [address]: SUAD FRITZ APRN SEX: M ORDER DR: Dictated by... Omid Romero M.D. THIS IS AN ELECTRONICALLY VERIFIED REPORT Omid Romero M.D. at 07/30/2016 10:47 PM Oliverio TD: 07/30/2016 18:36 JOB #: [id number] MEDICAL IMAGING REPORT Page 1 of 1 COPY
== END | disposition home or self-care (01) ==
LOC: CNIV 10:08
DX: L97.529 Non-pressure chronic ulcer of other part of left foot with unspecified severity (principal)
CPT/HCPCS: 93922